=== PATIENT | female | born 1975 | race Caucasian/White ===

== ENCOUNTER 2017-09-20 20:36 | Emergency (ER) | payer OTHER ==
[2017-09-20] MEDS ORDERED: DUONEB *Not for PRN Use IH ONE (21:41)
[2017-09-21] MEDS ORDERED: DUONEB *Not for PRN Use IH ONE (00:20)
[2017-09-21] MEDS ORDERED: DELTASONE PO ONE (00:21)
[2017-09-21] MEDS: DUONEB *Not for PRN Use IH ONE ×5 (00:43→05:10)
--- NOTE | 2017-09-21 01:15 | XRay Report ---
FINAL REPORT PROCEDURE: XR CHEST ROUTINE 2V TECHNIQUE: PA and lateral chest radiographs were obtained. CPT 12570 HISTORY: asthma lyndon COMPARISON: No prior studies are available for comparison. FINDINGS: Heart: Normal. Mediastinum/Vessels: Normal. Lungs/Pleural space: Normal. Bony thorax: No acute osseous abnormality. Other: IMPRESSION: There is no evidence of an acute cardiopulmonary process.
[2017-09-21 04:50] LABS: Hematocrit 37.6 % (30.3-42.9); Hemoglobin 12.3 gm/dl (10.1-14.3); Mean Corpuscular HGB Conc 33 % (30-34); Mean Corpuscular Hemoglobin 24 pg (28-32); Mean Corpuscular Volume 74 fl (79-97); Platelet Count 185 K/mm3 (140-440); Red Blood Count 5.06 M/mm3 (3.65-5.03)
[2017-09-21 05:04] LABS: BUN/Creatinine Ratio 14; Blood Urea Nitrogen 10 mg/dL (7-17); Calcium 8.6 mg/dL (8.4-10.2); Hemolysis Index 6
[2017-09-21 05:30] LABS: Basophils % (Manual) 0 % (0.0-1.8); Eosinophils % (Manual) 0 % (0.0-4.3); Hypochromasia 1+; Total Cells Counted 100
[2017-09-21 05:31] LABS: Anisocytosis 1+; Platelet Estimate Consistent w Auto
--- NOTE | 2017-09-21 06:08 | Emergency Department Report ---
ED General Adult HPI - General Chief complaint: Adult Asthma Stated complaint: ASTHMA,EYES,LIPS REDDISH, HEADACHE Time Seen by Provider: 09/21/17 03:50 Source: patient Mode of arrival: Ambulatory Limitations: No Limitations - History of Present Illness Initial comments: 42-year-old female poor historian and speaks some Hungarian says she does have hx of issue of asthma denies other complaints says she took some of her mother's asthma medicine and it made her lips breakout and made her heart race .she denies chest pain she denies calf pain or swelling she denies any history of DVT or PE. Denies risk factors for DVT PE denies any family history for DVT PE. She denies and refuses a test .she is here for evaluation of palpitations after using her mother's asthma medicine and the asthma medicine broke her lips out, asthma sx are beter now, no cp no fever no cough. -: Gradual, unknown Radiation: non-radiation Severity scale (0 -10): 3 Associated Symptoms: denies other symptoms, rash. denies: confusion, chest pain , cough, diaphoresis, fever/chills, headaches, loss of appetite, malaise, nausea /vomiting, seizure, shortness of breath, syncope, weakness - Related Data Previous Rx's Medication Instructions Recorded Last Taken Type traMADol [Ultram 50 MG tab] 50 mg PO Q6HR PRN #20 tablet 05/23/13 Unknown Rx ALBUTEROL Inhaler [ProAir HFA 2 puff IH QID PRN #1 inhalation 09/21/17 Unknown Rx Inhaler] Prednisone 50 mg PO DAILY #5 tablet 09/21/17 Unknown Rx Allergies Allergy/AdvReac Type Severity Reaction Status Date / Time aspirin Allergy Shortness Verified 05/22/13 20:32 of Breath ED Review of Systems ROS: Stated complaint: ASTHMA,EYES,LIPS REDDISH, HEADACHE Other details as noted in HPI Comment: All other systems reviewed and negative Constitutional: denies: chills, diaphoresis, fever, malaise, weakness Eyes: denies: eye discharge, vision change ENT: denies: ear pain, throat pain, dental pain, hearing loss, epistaxis, congestion Respiratory: wheezing. denies: cough, orthopnea, shortness of breath, SOB with exertion, SOB at rest, stridor Cardiovascular: denies: chest pain, palpitations, dyspnea on exertion, orthopnea , edema, syncope, paroxysmal nocturnal dyspnea Gastrointestinal: denies: abdominal pain, nausea, vomiting, diarrhea, constipation, hematemesis, melena, hematochezia Genitourinary: denies: urgency, dysuria, hematuria, discharge, abnormal menses Neurological: denies: headache, weakness, numbness, paresthesias, confusion, abnormal gait Psychiatric: denies: visual hallucinations, homicidal thoughts, suicidal thoughts Hematological/Lymphatic: denies: easy bleeding, easy bruising, swollen glands ED Past Medical Hx - Past Medical History Previous Medical History?: Yes Hx Asthma: Yes - Surgical History Past Surgical History?: No - Social History Smoking Status: Never Smoker Substance Use Type: None - Medications Home Medications: Home Medications Medication Instructions Recorded Confirmed Last Taken Type traMADol [Ultram 50 MG tab] 50 mg PO Q6HR PRN #20 tablet 05/23/13 Unknown Rx ALBUTEROL Inhaler [ProAir HFA 2 puff IH QID PRN #1 inhalation 09/21/17 Unknown Rx Inhaler] Prednisone 50 mg PO DAILY #5 tablet 09/21/17 Unknown Rx ED Physical Exam - General Limitations: No Limitations General appearance: alert, in no apparent distress, anxious - Head Head exam: Present: atraumatic, normocephalic - Eye Eye exam: Present: normal appearance, PERRL, EOMI - ENT ENT exam: Present: normal exam, normal orophraynx - Neck Neck exam: Present: normal inspection. Absent: tenderness, meningismus - Respiratory Respiratory exam: Present: normal lung sounds bilaterally. Absent: respiratory distress, wheezes, rales, rhonchi, stridor, chest wall tenderness, accessory muscle use, decreased breath sounds, prolonged expiratory - Cardiovascular Cardiovascular Exam: Present: regular rate, normal rhythm, normal heart sounds - GI/Abdominal GI/Abdominal exam: Present: soft. Absent: distended, tenderness, guarding, rebound, organomegaly, mass, pulsatile mass - Extremities Exam Extremities exam: Present: normal inspection, normal capillary refill. Absent: full ROM, tenderness, pedal edema, joint swelling, calf tenderness - Back Exam Back exam: Present: normal inspection. Absent: CVA tenderness (R), CVA tenderness (L), muscle spasm, paraspinal tenderness, vertebral tenderness - Neurological Exam Neurological exam: Present: alert, oriented X3, CN II-XII intact. Absent: motor sensory deficit - Psychiatric Psychiatric exam: Present: normal affect. Absent: suicidal ideation - Skin Skin exam: Present: warm. Absent: diaphoretic, erythema, urticaria, vesicles, petechiae, pallor ED Course Vital Signs 09/20/17 09/21/17 09/21/17 21:34 00:43 00:51 Temperature 98.8 F Pulse Rate 104 H Pulse Rate [ 82 Right Lower Lobe] Respiratory 22 Rate Respiratory 18 Rate [Right Lower Lobe] Blood Pressure 119/81 Blood Pressure [Right] O2 Sat by Pulse 96 99 Oximetry 09/21/17 09/21/17 09/21/17 01:00 01:04 01:06 Temperature 100.4 F H Pulse Rate 106 H Pulse Rate [ 84 Right Lower Lobe] Respiratory 18 18 Rate Respiratory 18 Rate [Right Lower Lobe] Blood Pressure Blood Pressure 139/75 [Right] O2 Sat by Pulse 99 98 98 Oximetry 09/21/17 09/21/17 09/21/17 01:16 01:30 01:46 Temperature Pulse Rate Pulse Rate [ Right Lower Lobe] Respiratory Rate Respiratory Rate [Right Lower Lobe] Blood Pressure Blood Pressure [Right] O2 Sat by Pulse 99 99 98 Oximetry 09/21/17 09/21/17 09/21/17 02:00 02:15 02:20 Temperature 99.1 F Pulse Rate 103 H Pulse Rate [ Right Lower Lobe] Respiratory 16 Rate Respiratory Rate [Right Lower Lobe] Blood Pressure 115/66 Blood Pressure 114/66 [Right] O2 Sat by Pulse 99 96 97 Oximetry 09/21/17 09/21/17 09/21/17 02:30 02:45 03:00 Temperature Pulse Rate Pulse Rate [ Right Lower Lobe] Respiratory Rate Respiratory Rate [Right Lower Lobe] Blood Pressure 121/70 127/77 126/74 Blood Pressure [Right] O2 Sat by Pulse 98 91 92 Oximetry 09/21/17 09/21/17 09/21/17 03:15 03:30 03:46 Temperature Pulse Rate Pulse Rate [ Right Lower Lobe] Respiratory Rate Respiratory Rate [Right Lower Lobe] Blood Pressure 130/71 115/68 101/63 Blood Pressure [Right] O2 Sat by Pulse 93 95 96 Oximetry 09/21/17 09/21/17 09/21/17 04:00 04:15 04:30 Temperature Pulse Rate 89 86 89 Pulse Rate [ Right Lower Lobe] Respiratory 21 16 19 Rate Respiratory Rate [Right Lower Lobe] Blood Pressure 116/59 106/56 115/68 Blood Pressure [Right] O2 Sat by Pulse 93 96 100 Oximetry 09/21/17 09/21/17 09/21/17 04:40 04:58 05:02 Temperature Pulse Rate Pulse Rate [ 84 86 84 Right Lower Lobe] Respiratory Rate Respiratory 18 16 18 Rate [Right Lower Lobe] Blood Pressure Blood Pressure [Right] O2 Sat by Pulse Oximetry ED Medical Decision Making - Lab Data Result diagrams: 09/21/17 04:38 09/21/17 04:38 - EKG Data -: EKG Interpreted by Me EKG shows normal: sinus rhythm Rate: normal - EKG Data Interpretation: no acute changes, nonspecific ST-T wave hernando - Radiology Data Radiology results: report reviewed - Medical Decision Making Patient has symptoms that likely represent medication side effect. She did get a bit of a pounding heart after trying her mother's asthma medicines. She does have negative troponin 2 within normally nondiagnostic EKG. Chest x-ray was read as no acute process. She denies risk factors and is perk negative for DVT PE. She is improved in the ED with stable vital signs were heart rate blood pressure pulse are satisfactory is rate are all normal go ahead and put her back on her regular albuterol at her prednisone. Chest x-ray and ekg is unremarkable; no evidence of an acute emergent process that will require further workup or admission are noted at this time she is therefore stablel for outpatient follow-up Critical care attestation.: If time is entered above; I have spent that time in minutes in the direct care of this critically ill patient, excluding procedure time. ED Disposition Clinical Impression: Asthma, Medication side effect Disposition: DC-01 TO HOME OR SELFCARE Is pt being admited?: No Condition: Stable Instructions: Asthma (ED), Reactive Airways Disease (ED) Additional Instructions: See her doctor or the doctor listed in 2 days, return immediately if new or alarming symptoms or call 911 Prescriptions: ALBUTEROL Inhaler [ProAir HFA Inhaler] 2 puff IH QID PRN #1 inhalation PRN Reason: Shortness Of Breath Prednisone 50 mg PO DAILY #5 tablet Referrals: ELYSSA NAZARIO MD [Primary Care Provider] - 3-5 Days Time of Disposition: 06:13
[2017-09-21 06:47] VITALS: BP 126/75
== END 2017-09-21 06:46 | disposition home or self-care (01) ==
LOC: ED 20:36
DX: J45.909 Unspecified asthma, uncomplicated (principal); T50.995A Adverse effect of other drugs, medicaments and biological substances, initial encounter; Z88.6 Allergy status to analgesic agent; Y92.89 Other specified places as the place of occurrence of the external cause
CPT/HCPCS: 36415; 71046; 80048; 84484; 85007; 85025; 93005; 93010; 94640; 99284; J7512

== ENCOUNTER 2021-01-05 23:51 | Observation (INO) | payer OTHER, SELFPAY ==
[2021-01-06] MEDS ORDERED: AZITHROMYCIN/NS 500 MG/250 ML 500 MG/250 ML BAG IV ONE (00:25)
[2021-01-06] MEDS ORDERED: cefTRIAXone/NS 2 GM/100 ML 2 GM/100 ML BAG IV ONE (00:25)
[2021-01-06 00:46] LABS: Basophils % (Auto) 0.5 % (0.0-1.8); Eosinophils # (Auto) 0.3 K/mm3 (0.0-0.4); Eosinophils % (Auto) 3.4 % (0.0-4.3); Hematocrit 35.6 % (30.3-42.9); Hemoglobin 11.4 gm/dl (10.1-14.3); Lymphocytes # (Auto) 0.8 K/mm3 (1.2-5.4); Lymphocytes % (Auto) 8.8 % (13.4-35.0); Mean Corpuscular HGB Conc 32 % (30-34); Mean Corpuscular Volume 75 fl (79-97); Monocytes # (Auto) 0.6 K/mm3 (0.0-0.8); Monocytes % (Auto) 7.2 % (0.0-7.3); Platelet Count 254 K/mm3 (140-440); Red Blood Count 4.74 M/mm3 (3.65-5.03); Red Cell Distribution Width 16.1 % (13.2-15.2)
[2021-01-06] MEDS ORDERED: ALBUTEROL 2.5 MG/3 ML NEBU IH ONE (00:58)
[2021-01-06] MEDS ORDERED: MORPHINE 4 MG/1 ML INJ IV ONE (00:58)
[2021-01-06] MEDS ORDERED: ONDANSETRON 4 MG/2 ML INJ IV ONE (00:58)
[2021-01-06] MEDS ORDERED: dexAMETHasone 20 MG/5 ML VIAL IV ONE (00:58)
[2021-01-06] MEDS ORDERED: IPRATROPIUM 0.02% NEBU 2.5 ML IH ONE (00:58)
[2021-01-06 01:04] LABS: Alanine Aminotransferase 13 units/L (7-56); Albumin 4.2 g/dL (3.9-5); Blood Urea Nitrogen 10 mg/dL (7-17); Calcium 8.6 mg/dL (8.4-10.2); Hemolysis Index 2
[2021-01-06 01:06] LABS: BUN/Creatinine Ratio 14
--- NOTE | 2021-01-06 01:10 | Emergency Department Report ---
ED Shortness of Breath HPI - General Chief Complaint: Chest Pain Stated Complaint: HYACINTH Time Seen by Provider: 01/06/21 00:30 Source: patient Mode of arrival: Ambulatory Limitations: Language Barrier - History of Present Illness Initial Comments: Patient is a 45-year-old female who is presenting with chest pain shortness of breath. Patient has a history of asthma. Patient has had some increased shortness of breath and cough for the past 2 to 3 days. Pain cough and shortness of breath worsened over the last day. She has had some chills. Denies any objective fever at home however she was febrile on arrival. Has been some mild nausea especially with fits of coughing. Denies headache sore throat diarrhea. Patient has had 2 COVID-19 vaccines greater than 2 weeks ago. - Related Data Previous Rx's Medication Instructions Recorded Last Taken Type traMADoL [Ultram 50 MG tab] 50 mg PO Q6HR PRN #20 tablet 05/23/13 Unknown Rx Albuterol Mdi (or & Nicu Only) 2 puff IH QID PRN #1 inhalation 09/21/17 Unknown Rx [ProAir HFA Inhaler] predniSONE [Prednisone] 50 mg PO DAILY #5 tablet 09/21/17 Unknown Rx Allergies Allergy/AdvReac Type Severity Reaction Status Date / Time aspirin Allergy Shortness Verified 05/22/13 20:32 of Breath ED Review of Systems ROS: Stated complaint: HYACINTH Other details as noted in HPI Comment: All other systems reviewed and negative ED Past Medical Hx - Past Medical History Previous Medical History?: Yes Hx Asthma: Yes - Surgical History Past Surgical History?: Yes Additional Surgical History: L armpit - Social History Smoking Status: Never Smoker Substance Use Type: None - Medications Home Medications: Home Medications Medication Instructions Recorded Confirmed Last Taken Type traMADoL [Ultram 50 MG tab] 50 mg PO Q6HR PRN #20 tablet 05/23/13 Unknown Rx Albuterol Mdi (or & Nicu Only) 2 puff IH QID PRN #1 inhalation 09/21/17 Unknown Rx [ProAir HFA Inhaler] predniSONE [Prednisone] 50 mg PO DAILY #5 tablet 09/21/17 Unknown Rx ED Physical Exam - General Limitations: Language Barrier General appearance: alert, in distress, other (ill but none toxic appearing) - Head Head exam: Present: atraumatic, normocephalic - Eye Eye exam: Present: normal appearance, PERRL, EOMI - ENT ENT exam: Present: mucous membranes moist - Neck Neck exam: Present: normal inspection - Respiratory Respiratory exam: Present: respiratory distress, wheezes. Absent: normal lung sounds bilaterally, rales, rhonchi - Cardiovascular Cardiovascular Exam: Present: normal rhythm, tachycardia. Absent: systolic murmur, diastolic murmur, rubs, gallop - GI/Abdominal GI/Abdominal exam: Present: soft, normal bowel sounds. Absent: distended, tenderness, guarding, rebound - Extremities Exam Extremities exam: Present: normal inspection - Back Exam Back exam: Present: normal inspection - Neurological Exam Neurological exam: Present: alert, oriented X3 - Psychiatric Psychiatric exam: Present: normal affect, normal mood - Skin Skin exam: Present: warm, dry, intact, normal color. Absent: rash ED Course Vital Signs 01/05/21 01/06/21 01/06/21 23:54 01:09 01:51 Temperature 100.2 F H Pulse Rate 112 H Pulse Rate [ 110 H Bilateral] Respiratory 18 28 H Rate Respiratory 20 Rate [Bilateral ] Blood Pressure 158/88 O2 Sat by Pulse 92 Oximetry 01/06/21 01/06/21 01/06/21 01:52 01:53 01:55 Temperature Pulse Rate 111 H 112 H 108 H Pulse Rate [ Bilateral] Respiratory 29 H 26 H 26 H Rate Respiratory Rate [Bilateral ] Blood Pressure 147/80 147/80 149/77 O2 Sat by Pulse 93 94 Oximetry 01/06/21 01/06/21 01:56 01:57 Temperature Pulse Rate 111 H 112 H Pulse Rate [ Bilateral] Respiratory 28 H 28 H Rate Respiratory Rate [Bilateral ] Blood Pressure 149/77 149/77 O2 Sat by Pulse 96 93 Oximetry ED Medical Decision Making - Lab Data Result diagrams: 01/06/21 00:17 01/06/21 00:17 Lab Results 01/06/21 01/06/21 01/06/21 Range/Units 00:17 00:17 00:48 WBC 9.0 (4.5-11.0) K/mm3 RBC 4.74 (3.65-5.03) M/mm3 Hgb 11.4 (10.1-14.3) gm/dl Hct 35.6 (30.3-42.9) % MCV 75 L (79-97) fl MCH 24 L (28-32) pg MCHC 32 (30-34) % RDW 16.1 H (13.2-15.2) % Plt Count 254 (140-440) K/mm3 Lymph % (Auto) 8.8 L (13.4-35.0) % [place] % (Auto) 7.2 (0.0-7.3) % Eos % (Auto) 3.4 (0.0-4.3) % Baso % (Auto) 0.5 (0.0-1.8) % Lymph # (Auto) 0.8 L (1.2-5.4) K/mm3 [place] # (Auto) 0.6 (0.0-0.8) K/mm3 Eos # (Auto) 0.3 (0.0-0.4) K/mm3 Baso # (Auto) 0.0 (0.0-0.1) K/mm3 Seg Neutrophils % 80.1 H (40.0-70.0) % Seg Neutrophils # 7.2 (1.8-7.7) K/mm3 Sodium 134 L (137-145) mmol/L Potassium 4.2 (3.6-5.0) mmol/L Chloride 102.1 (98-107) mmol/L Carbon Dioxide 20 L (22-30) mmol/L Anion Gap 16 mmol/L BUN 10 (7-17) mg/dL Creatinine 0.7 (0.6-1.2) mg/dL Estimated GFR > 60 ml/min BUN/Creatinine Ratio 14 % Glucose 131 H (65-100) mg/dL Lactic Acid 0.90 (0.7-2.0) mmol/L Calcium 8.6 (8.4-10.2) mg/dL Total Bilirubin 0.80 (0.1-1.2) mg/dL AST 11 (5-40) units/L ALT 13 (7-56) units/L Alkaline Phosphatase 84 (35-129) units/L Troponin T < 0.010 (0.00-0.029) ng/mL Total Protein 7.2 (6.3-8.2) g/dL Albumin 4.2 (3.9-5) g/dL Albumin/Globulin Ratio 1.4 % - Radiology Data Radiology results: report reviewed, image reviewed (Per my interpretation there is a slight haziness in the right middle lobe. Patient has chronic elevation of the right diaphragm. In comparison to past x-rays patient is is worse than previous) [facility] [address] [place] [address] XRay Report Signed Patient: MELYSSA EDGE MR# : [id number] : 1975 Acct:[id number] Age/Sex: 45 / F ADM Date: 01/05/21 Loc: ED Attending Dr: Ordering Physician: KRISTIN VASQUEZ MD Date of Service: 01/05/21 Procedure(s): XR chest routine 2V Accession Number(s): [id number] cc: KRISTIN VASQUEZ MD Fluoro Time In Minutes: CHEST 2 VIEWS INDICATION / CLINICAL INFORMATION: dry cough. FINDINGS: SUPPORT DEVICES: None. HEART / MEDIASTINUM: No significant abnormality. LUNGS / PLEURA: No significant pulmonary or pleural abnormality. No pneumothorax. ADDITIONAL FINDINGS: No significant additional findings. IMPRESSION: 1. No acute findings. Signer Name: Polo Aguilar MD Signed: 01/06/2021 12:27 AM Workstation Name: [id number] Transcribed By: Dictated By: Polo Aguilar MD Electronically Authenticated By: Polo Aguilar MD Signed Date/Time: 01/06/21 0027 - Medical Decision Making After hour-long neb treatment the patient is continued to wheeze and have shortness of breath. O2 sats in the low 90s at rest. Patient will be admitted to the hospitalist service for further management. Critical Care Time: Yes (30) Critical care attestation.: If time is entered above; I have spent that time in minutes in the direct care of this critically ill patient, excluding procedure time. ED Disposition Clinical Impression: Hypoxia, Suspected COVID-19 virus infection Asthma exacerbation Qualifiers: Asthma severity: moderate Asthma persistence: persistent Qualified Code(s): J45.41 - Moderate persistent asthma with (acute) exacerbation Pneumonia Qualifiers: Pneumonia type: due to unspecified organism Laterality: right Lung location: middle lobe of lung Qualified Code(s): J18.9 - Pneumonia, unspecified organism Disposition: OP ADMIT IP TO THIS HOSP Is pt being admited?: Yes Does the pt Need Aspirin: No Condition: Stable Instructions: Bacterial Pneumonia (ED) Referrals: PRIMARY CARE, [Primary Care Provider] - 3-5 Days Time of Disposition: 02:45
[2021-01-06] MEDS ORDERED: MAGNESIUM SULFATE 2 GM/50 ML BAG IV ONE (02:29)
[2021-01-06 03:06] LABS: C-Reactive Protein 1.9 mg/dL (0.00-1.30)
[2021-01-06] MEDS ORDERED: ACETAMINOPHEN 325 MG TAB PO PRN (05:07)
[2021-01-06] MEDS ORDERED: ALBUTEROL 2.5 MG/3 ML NEBU IH PRN (05:07)
[2021-01-06] MEDS ORDERED: ONDANSETRON 4 MG/2 ML INJ IV PRN (05:07)
[2021-01-06] MEDS ORDERED: ALBUTEROL 8.5 GM MDI INHALATION IH PRN (05:10)
[2021-01-06] MEDS ORDERED: traMADol 50 MG TAB PO PRN (05:10)
[2021-01-06] MEDS ORDERED: SODIUM CHLORIDE 0.9% IV ONE (05:11)
[2021-01-06] MEDS ORDERED: hydrALAZINE 20 MG/1 ML INJ IV PRN (05:11)
[2021-01-06] MEDS ORDERED: DEXAMETHASONE IV ONE (05:11)
--- NOTE | 2021-01-06 05:18 | History and Physical Report ---
History of Present Illness Date of examination: 01/06/21 Date of admission: 01/06/21 02:45 Chief complaint: Chest pain shortness of breath History of present illness: 45-year-old female with past medical history of asthma was brought to the emergency room because of chest pain and increased shortness of breath and coughing for the last 2 days. patient has had some increased shortness of breath and cough for the past 2 to 3 days. Pain cough and shortness of breath worsened over the last day. She has had some chills. Denies any objective fever at home however she was febrile on arrival. Has been some mild nausea especially with fits of coughing. Denies headache sore throat diarrhea. Patient has had 2 COVID-19 vaccines greater than 2 weeks ago. In the emergency room patient is found to have acute asthma exacerbation checks x-ray compatible with pneumonia as per the ER physician Past History Past Medical History: other (Asthma) Medications and Allergies Allergies Allergy/AdvReac Type Severity Reaction Status Date / Time aspirin Allergy Shortness Verified 05/22/13 20:32 of Breath Home Medications Medication Instructions Recorded Confirmed Last Taken Type traMADoL [Ultram 50 MG tab] 50 mg PO Q6HR PRN #20 tablet 05/23/13 Unknown Rx Albuterol Mdi (or & Nicu Only) 2 puff IH QID PRN #1 inhalation 09/21/17 Unknown Rx [ProAir HFA Inhaler] predniSONE [Prednisone] 50 mg PO DAILY #5 tablet 09/21/17 Unknown Rx Review of Systems Cardiovascular: shortness of breath, dyspnea on exertion Respiratory: cough, shortness of breath, dyspnea on exertion Exam - Constitutional Vitals: Temp Pulse Resp BP Pulse Ox 100.2 F H 112 H 25 H 126/68 94 01/05/21 23:54 01/06/21 04:31 01/06/21 04:31 01/06/21 04:31 01/06/21 04:31 General appearance: Present: no acute distress, well-nourished - EENT Eyes: Present: PERRL ENT: hearing intact, clear oral mucosa - Neck Neck: Present: supple, normal ROM - Respiratory Respiratory effort: normal Respiratory: bilateral: wheezing - Cardiovascular Heart Sounds: Present: S1 & S2. Absent: rub, click - Extremities Extremities: pulses symmetrical, No edema Peripheral Pulses: within normal limits - Abdominal General gastrointestinal: Present: soft, non-tender, non-distended, normal bowel sounds Female genitourinary: Present: normal - Integumentary Integumentary: Present: clear, warm, dry - Musculoskeletal Musculoskeletal: gait normal, strength equal bilaterally - Psychiatric Psychiatric: appropriate mood/affect, intact judgment & insight - Neurologic Neurologic: CNII-XII intact, moves all extremities HEART Score - HEART Score Troponin: Troponin T < 0.010 ng/mL (0.00-0.029) 01/06/21 00:17 Results - Labs CBC & Chem 7: 01/06/21 00:17 01/06/21 02:38 Labs: Laboratory Last Values WBC 9.0 K/mm3 (4.5-11.0) 01/06/21 00:17 RBC 4.74 M/mm3 (3.65-5.03) 01/06/21 00:17 Hgb 11.4 gm/dl (10.1-14.3) 01/06/21 00:17 Hct 35.6 % (30.3-42.9) 01/06/21 00:17 MCV 75 fl (79-97) L 01/06/21 00:17 MCH 24 pg (28-32) L 01/06/21 00:17 MCHC 32 % (30-34) 01/06/21 00:17 RDW 16.1 % (13.2-15.2) H 01/06/21 00:17 Plt Count 254 K/mm3 (140-440) 01/06/21 00:17 Lymph % (Auto) 8.8 % (13.4-35.0) L 01/06/21 00:17 [place] % (Auto) 7.2 % (0.0-7.3) 01/06/21 00:17 Eos % (Auto) 3.4 % (0.0-4.3) 01/06/21 00:17 Baso % (Auto) 0.5 % (0.0-1.8) 01/06/21 00:17 Lymph # (Auto) 0.8 K/mm3 (1.2-5.4) L 01/06/21 00:17 [place] # (Auto) 0.6 K/mm3 (0.0-0.8) 01/06/21 00:17 Eos # (Auto) 0.3 K/mm3 (0.0-0.4) 01/06/21 00:17 Baso # (Auto) 0.0 K/mm3 (0.0-0.1) 01/06/21 00:17 Seg Neutrophils % 80.1 % (40.0-70.0) H 01/06/21 00:17 Seg Neutrophils # 7.2 K/mm3 (1.8-7.7) 01/06/21 00:17 D-Dimer 262.48 ng/mlDDU (0-234) H 01/06/21 02:38 Sodium 134 mmol/L (137-145) L 01/06/21 00:17 Potassium 4.2 mmol/L (3.6-5.0) 01/06/21 00:17 Chloride 102.1 mmol/L (98-107) 01/06/21 00:17 Carbon Dioxide 20 mmol/L (22-30) L 01/06/21 00:17 Anion Gap 16 mmol/L 01/06/21 00:17 BUN 10 mg/dL (7-17) 01/06/21 00:17 Creatinine 0.7 mg/dL (0.6-1.2) 01/06/21 00:17 Estimated GFR > 60 ml/min 01/06/21 00:17 BUN/Creatinine Ratio 14 % 01/06/21 00:17 Glucose 117 mg/dL (65-100) H 01/06/21 02:38 Lactic Acid 2.40 mmol/L (0.7-2.0) H* 01/06/21 04:11 Calcium 8.6 mg/dL (8.4-10.2) 01/06/21 00:17 Ferritin 22.7 ng/mL (10.0-200.0) 01/06/21 02:38 Total Bilirubin 0.80 mg/dL (0.1-1.2) 01/06/21 00:17 AST 11 units/L (5-40) 01/06/21 00:17 ALT 13 units/L (7-56) 01/06/21 00:17 Alkaline Phosphatase 84 units/L (35-129) 01/06/21 00:17 Lactate Dehydrogenase 197 units/L (91-180) H 01/06/21 02:38 Troponin T < 0.010 ng/mL (0.00-0.029) 01/06/21 00:17 C-Reactive Protein 1.90 mg/dL (0.00-1.30) H 01/06/21 02:38 Total Protein 7.2 g/dL (6.3-8.2) 01/06/21 00:17 Albumin 4.2 g/dL (3.9-5) 01/06/21 00:17 Albumin/Globulin Ratio 1.4 % 01/06/21 00:17 Microbiology: Microbiology 01/06/21 00:48 Peripheral/Venous Blood Culture - Preliminary Culture in Progress 01/06/21 00:42 Peripheral/Venous Blood Culture - Preliminary Culture in Progress - Imaging and Cardiology Chest x-ray: report reviewed Assessment and Plan VTE prophylaxis?: Chemical Plan of care discussed with patient/family: Yes - Patient Problems (1) Asthma exacerbation Current Visit: Yes Status: Acute Qualifiers: Asthma severity: moderate Asthma persistence: persistent Qualified Code(s): J45.41 - Moderate persistent asthma with (acute) exacerbation Plan to address problem: Admit the patient to the medical floor telemetry. Oxygen via nasal cannula 3 L/min. DuoNeb by nebulizer every 4 hours. Albuterol via nebulizer every 4 hours as needed. Decadron 6 mg IV daily. Rocephin 2 g IV daily and Zithromax 500 mg IV daily. (2) Hypoxia Current Visit: Yes Status: Acute Plan to address problem: Oxygen via nasal cannula 3 L/min. DuoNeb by nebulizer every 4 hours. Albuterol via nebulizer every 4 hours as needed. Decadron 6 mg IV daily. Rocephin 2 g IV daily and Zithromax 500 mg IV daily. (3) Pneumonia Current Visit: Yes Status: Acute Qualifiers: Pneumonia type: due to unspecified organism Laterality: right Lung location: middle lobe of lung Qualified Code(s): J18.9 - Pneumonia, unspecified organism Plan to address problem: Oxygen via nasal cannula 3 L/min. DuoNeb by nebulizer every 4 hours. Albuterol via nebulizer every 4 hours as needed. Decadron 6 mg IV daily. Rocephin 2 g IV daily and Zithromax 500 mg IV daily. We will do the blood culture and sputum culture (4) Suspected COVID-19 virus infection Current Visit: Yes Status: Acute Plan to address problem: Decadron 6 mg IV daily. Rocephin 2 g IV daily and Zithromax 500 mg IV daily. Consult infectious disease for evaluation follow the Covid PCR and Covid inflammatory marker. Recheck CBC in the morning (5) DVT prophylaxis Current Visit: Yes Status: Acute Plan to address problem: Heparin 5000 units subcu every 8 hours for DVT prophylaxis. Protonix 40 mg p.o. daily for GI prophylaxis. Patient is a full code
[2021-01-06] MEDS ORDERED: SODIUM CHLORIDE 0.45% 1000 ML 1,000 ML IV SCH (06:00)
[2021-01-06] MEDS: IPRATROPIUM/ALBUTEROL SULFATE 3 ML AMPUL.NEB IH SCH ×2 (07:36→14:02)
[2021-01-06] MEDS ORDERED: BUDESONIDE 0.5 MG/2 ML NEBU IH SCH (08:00)
[2021-01-06] MEDS ORDERED: FAMOTIDINE 20 MG TAB PO SCH (10:00)
--- NOTE | 2021-01-06 11:32 | Consultation ---
History of Present Illness - Reason for Consult Consult date: 01/06/21 LISA SMITH Requesting physician: GURPREET GANDARA - History of Present Illness The patient is a 45-year-old female with history of asthma admitted to the hospital with chest pain and shortness of breath in addition to cough. Upon evaluation, had a low-grade fever, bilateral wheezing on examination. She has been on room air, chest x-ray did not reveal any infiltrates. Labs showed kanwal l WBC, D-dimer 262, CRP 1.9, procalcitonin 0.05, ferritin 22.7 Review of Systems: Negative, except per HPI Past History Past Medical History: other (Asthma) Medications and Allergies Allergies Allergy/AdvReac Type Severity Reaction Status Date / Time aspirin Allergy Shortness Verified 05/22/13 20:32 of Breath Home Medications Medication Instructions Recorded Confirmed Last Taken Type traMADoL [Ultram 50 MG tab] 50 mg PO Q6HR PRN #20 tablet 05/23/13 Unknown Rx Albuterol Mdi (or & Nicu Only) 2 puff IH QID PRN #1 inhalation 09/21/17 Unknown Rx [ProAir HFA Inhaler] predniSONE [Prednisone] 50 mg PO DAILY #5 tablet 09/21/17 Unknown Rx Active Meds: Active Medications Acetaminophen (Acetaminophen 325 Mg Tab) 650 mg PO Q4H PRN PRN Reason: Pain MILD(1-3)/Fever >100.5/MOE Albuterol (Albuterol 2.5 Mg/3 Ml Nebu) 2.5 mg IH Q4HRT PRN PRN Reason: Shortness Of Breath Albuterol/Ipratropium (Ipratropium/Albuterol Sulfate 3 Ml Ampul.Neb) 1 ampul IH Q6HRT [facility] Last Admin: 01/06/21 07:36 Dose: 1 ampul Documented by: Budesonide (Budesonide 0.5 Mg/2 Ml Nebu) 0.5 mg IH Q12HRT [facility] Last Admin: 01/06/21 07:36 Dose: 0.5 mg Documented by: Dexamethasone (Dexamethasone 4 Mg/Ml Vial) 6 mg IV DAILY [facility] Famotidine (Famotidine 20 Mg Tab) 20 mg PO BID [facility] Last Admin: 01/06/21 09:52 Dose: 20 mg Documented by: Heparin Sodium (Porcine) (Heparin 5,000 Unit/1 Ml Vial) 5,000 unit SUB-Q Q8HR JO-ANN Hydralazine HCl (Hydralazine 20 Mg/1 Ml Inj) 10 mg IV Q6H PRN PRN Reason: SBP >/=160; DBP >/=100 Sodium Chloride (Nacl 0.45% 1000 Ml) 1,000 mls @ 100 mls/hr IV DIRECT JO-ANN Last Admin: 01/06/21 09:53 Dose: 100 mls/hr Documented by: Ceftriaxone Sodium (Rocephin/Ns 2 Gm/100 Ml) 2 gm in 100 mls @ 200 mls/hr IV Q24H JO-ANN; Protocol Azithromycin (Zithromax/Ns) 500 mg in 250 mls @ 250 mls/hr IV Q24H JO-ANN; Protocol Ondansetron HCl (Ondansetron 4 Mg/2 Ml Inj) 4 mg IV Q8H PRN PRN Reason: Nausea And Vomiting Sodium Chloride (Sodium Chloride 0.9% 10 Ml Flush Syringe) 10 ml IV BID JO-ANN Last Admin: 01/06/21 09:52 Dose: 10 ml Documented by: Sodium Chloride (Sodium Chloride 0.9% 10 Ml Flush Syringe) 10 ml IV PRN PRN PRN Reason: LINE FLUSH Tramadol HCl (Tramadol 50 Mg Tab) 50 mg PO Q6HR PRN PRN Reason: Pain, Moderate (4-6) Physical Examination - Physical Exam Narrative exam: Physical Exam: Constitutional: Alert, cooperative. No acute distress Head, Ears, Nose: Normocephalic, atraumatic. External ears, nose normal Eyes: Conjunctivae/corneas clear. No icterus. No ptosis. Neck: Supple, no meningeal signs Cardiovascular: S1, S2 normal. Respiratory: Good air entry, clear to auscultation bilaterally GI: Soft, non-tender; bowel sounds normal. No peritoneal signs Musculoskeletal: No pedal edema, no cyanosis. Skin: No rash or abscess Hem/Lymphatic: No palpable cervical or supraclavicular nodes. No lymphangitis Psych: Mood ok. Affect normal Neurological: Awake, alert, oriented. No gross abnormality - Constitutional Vitals: Vital Signs Temp Pulse Resp BP Pulse Ox 98.2 F 105 H 24 135/60 95 01/06/21 05:39 01/06/21 10:51 01/06/21 07:51 01/06/21 10:51 01/06/21 10:51 Temperature -Last 24 Hours Temperature 98.2 F Temperature 100.2 F Results - Labs CBC & Chem 7: 01/06/21 00:17 01/06/21 02:38 Labs: Abnormal lab results 01/06/21 01/06/21 01/06/21 Range/Units 00:17 00:17 02:38 MCV 75 L (79-97) fl MCH 24 L (28-32) pg RDW 16.1 H (13.2-15.2) % Lymph % (Auto) 8.8 L (13.4-35.0) % Lymph # (Auto) 0.8 L (1.2-5.4) K/mm3 Seg Neutrophils % 80.1 H (40.0-70.0) % D-Dimer 262.48 H (0-234) ng/mlDDU Sodium 134 L (137-145) mmol/L Carbon Dioxide 20 L (22-30) mmol/L Glucose 131 H (65-100) mg/dL Lactic Acid (0.7-2.0) mmol/L Lactate Dehydrogenase (91-180) units/L C-Reactive Protein (0.00-1.30) mg/dL 01/06/21 01/06/21 Range/Units 02:38 04:11 MCV (79-97) fl MCH (28-32) pg RDW (13.2-15.2) % Lymph % (Auto) (13.4-35.0) % Lymph # (Auto) (1.2-5.4) K/mm3 Seg Neutrophils % (40.0-70.0) % D-Dimer (0-234) ng/mlDDU Sodium (137-145) mmol/L Carbon Dioxide (22-30) mmol/L Glucose 117 H (65-100) mg/dL Lactic Acid 2.40 H* (0.7-2.0) mmol/L Lactate Dehydrogenase 197 H (91-180) units/L C-Reactive Protein 1.90 H (0.00-1.30) mg/dL - Imaging and Cardiology Chest x-ray: report reviewed, image reviewed (no infiltrate seen) Assessment and Plan Cultures: SARS CoV2 PCR: Pending 01/06/2021 blood culture: In process A/P: 45-year-old female with history of asthma admitted to the hospital with chest pain and shortness of breath in addition to cough: #Acute asthma exacerbation: Chest x-ray without infiltrates. Recs: -Low suspicion for COVID-19, PCR is pending though, patient is status post vaccination (2nd shot was on December 19) and has low inflammatory markers, not hypoxic. -Procalcitonin is low, ceftriaxone discontinued. May complete 3 days of azithromycin Vero Graff MD, FACP [facility] ([facility] O: [phone] F: [phone]
[2021-01-06] MEDS: HEPARIN 5,000 UNIT/1 ML VIAL SUB-Q SCH ×2 (14:40→16:26)
--- NOTE | 2021-01-06 15:45 | Progress Note ---
Assessment and Plan Assessment and plan: (1) Asthma exacerbation Current Visit: Yes Status: Acute Qualifiers: Asthma severity: moderate Asthma persistence: persistent Qualified Code(s): J45.41 - Moderate persistent asthma with (acute) exacerbation Plan to address problem: Admit the patient to the medical floor telemetry. Oxygen via nasal cannula 3 L/min. DuoNeb by nebulizer every 4 hours. Albuterol via nebulizer every 4 hours as needed. Decadron 6 mg IV daily. Rocephin 2 g IV daily and Zithromax 500 mg IV daily. (2) Hypoxia Current Visit: Yes Status: Acute Plan to address problem: Oxygen via nasal cannula 3 L/min. DuoNeb by nebulizer every 4 hours. Albuterol via nebulizer every 4 hours as needed. Decadron 6 mg IV daily. Rocephin 2 g IV daily and Zithromax 500 mg IV daily. (3) Pneumonia Current Visit: Yes Status: Acute Qualifiers: Pneumonia type: due to unspecified organism Laterality: right Lung location: middle lobe of lung Qualified Code(s): J18.9 - Pneumonia, unspecified organism Plan to address problem: Oxygen via nasal cannula 3 L/min. DuoNeb by nebulizer every 4 hours. Albuterol via nebulizer every 4 hours as needed. Decadron 6 mg IV daily. Rocephin 2 g IV daily and Zithromax 500 mg IV daily. We will do the blood culture and sputum culture (4) Suspected COVID-19 virus infection Current Visit: Yes Status: Acute Plan to address problem: Decadron 6 mg IV daily. Rocephin 2 g IV daily and Zithromax 500 mg IV daily. Consult infectious disease for evaluation follow the Covid PCR and Covid inflammatory marker. Recheck CBC in the morning (5) DVT prophylaxis Current Visit: Yes Status: Acute Plan to address problem: Heparin 5000 units subcu every 8 hours for DVT prophylaxis. Protonix 40 mg p.o. daily for GI prophylaxis. Patient is a full code Hospitalist Physical - Constitutional Vitals: Temp Pulse Resp BP Pulse Ox 99.1 F 106 H 18 129/60 93 01/06/21 13:39 01/06/21 15:31 01/06/21 14:02 01/06/21 15:31 01/06/21 15:31 General appearance: Present: no acute distress, well-nourished HEART Score - HEART Score Troponin: Troponin T < 0.010 ng/mL (0.00-0.029) 01/06/21 00:17 Results - Labs CBC & Chem 7: 01/06/21 00:17 01/06/21 02:38 Labs: Laboratory Last Values WBC 9.0 K/mm3 (4.5-11.0) 01/06/21 00:17 RBC 4.74 M/mm3 (3.65-5.03) 01/06/21 00:17 Hgb 11.4 gm/dl (10.1-14.3) 01/06/21 00:17 Hct 35.6 % (30.3-42.9) 01/06/21 00:17 MCV 75 fl (79-97) L 01/06/21 00:17 MCH 24 pg (28-32) L 01/06/21 00:17 MCHC 32 % (30-34) 01/06/21 00:17 RDW 16.1 % (13.2-15.2) H 01/06/21 00:17 Plt Count 254 K/mm3 (140-440) 01/06/21 00:17 Lymph % (Auto) 8.8 % (13.4-35.0) L 01/06/21 00:17 [place] % (Auto) 7.2 % (0.0-7.3) 01/06/21 00:17 Eos % (Auto) 3.4 % (0.0-4.3) 01/06/21 00:17 Baso % (Auto) 0.5 % (0.0-1.8) 01/06/21 00:17 Lymph # (Auto) 0.8 K/mm3 (1.2-5.4) L 01/06/21 00:17 [place] # (Auto) 0.6 K/mm3 (0.0-0.8) 01/06/21 00:17 Eos # (Auto) 0.3 K/mm3 (0.0-0.4) 01/06/21 00:17 Baso # (Auto) 0.0 K/mm3 (0.0-0.1) 01/06/21 00:17 Seg Neutrophils % 80.1 % (40.0-70.0) H 01/06/21 00:17 Seg Neutrophils # 7.2 K/mm3 (1.8-7.7) 01/06/21 00:17 D-Dimer 262.48 ng/mlDDU (0-234) H 01/06/21 02:38 Sodium 134 mmol/L (137-145) L 01/06/21 00:17 Potassium 4.2 mmol/L (3.6-5.0) 01/06/21 00:17 Chloride 102.1 mmol/L (98-107) 01/06/21 00:17 Carbon Dioxide 20 mmol/L (22-30) L 01/06/21 00:17 Anion Gap 16 mmol/L 01/06/21 00:17 BUN 10 mg/dL (7-17) 01/06/21 00:17 Creatinine 0.7 mg/dL (0.6-1.2) 01/06/21 00:17 Estimated GFR > 60 ml/min 01/06/21 00:17 BUN/Creatinine Ratio 14 % 01/06/21 00:17 Glucose 117 mg/dL (65-100) H 01/06/21 02:38 Lactic Acid 3.00 mmol/L (0.7-2.0) H* 01/06/21 11:21 Calcium 8.6 mg/dL (8.4-10.2) 01/06/21 00:17 Ferritin 22.7 ng/mL (10.0-200.0) 01/06/21 02:38 Total Bilirubin 0.80 mg/dL (0.1-1.2) 01/06/21 00:17 AST 11 units/L (5-40) 01/06/21 00:17 ALT 13 units/L (7-56) 01/06/21 00:17 Alkaline Phosphatase 84 units/L (35-129) 01/06/21 00:17 Lactate Dehydrogenase 197 units/L (91-180) H 01/06/21 02:38 Troponin T < 0.010 ng/mL (0.00-0.029) 01/06/21 00:17 C-Reactive Protein 1.90 mg/dL (0.00-1.30) H 01/06/21 02:38 Total Protein 7.2 g/dL (6.3-8.2) 01/06/21 00:17 Albumin 4.2 g/dL (3.9-5) 01/06/21 00:17 Albumin/Globulin Ratio 1.4 % 01/06/21 00:17 Procalcitonin < 0.05 ng/mL (<0.15) 01/06/21 02:38 Coronavirus (PCR) Negative (Negative) 01/06/21 09:17 Microbiology: Microbiology 01/06/21 00:48 Peripheral/Venous Blood Culture - Preliminary Culture in Progress 01/06/21 00:42 Peripheral/Venous Blood Culture - Preliminary Culture in Progress [place]/IV: Voiding Method Toilet Active Medications - Current Medications Current Medications: Generic Name Dose Route Start Last Admin Trade Name Freq PRN Reason Stop Dose Admin Acetaminophen 650 mg 01/06/21 05:07 Acetaminophen 325 Mg Tab PO Q4H PRN Pain MILD(1-3)/Fever >100.5/MOE Albuterol 2.5 mg 01/06/21 05:07 Albuterol 2.5 Mg/3 Ml Nebu IH Q4HRT PRN Shortness Of Breath Albuterol/Ipratropium 1 ampul 01/06/21 08:00 01/06/21 14:02 Ipratropium/Albuterol Sulfate 3 Ml Ampul.Neb IH 1 ampul Q6HRT JO-ANN Administration Budesonide 0.5 mg 01/06/21 08:00 01/06/21 07:36 Budesonide 0.5 Mg/2 Ml Nebu IH 0.5 mg Q12HRT JO-ANN Administration Dexamethasone 6 mg 01/07/21 10:00 Dexamethasone 4 Mg/Ml Vial IV DAILY JO-ANN Famotidine 20 mg 01/06/21 10:00 01/06/21 09:52 Famotidine 20 Mg Tab PO 20 mg BID JO-ANN Administration Heparin Sodium (Porcine) 5,000 unit 01/06/21 06:00 Heparin 5,000 Unit/1 Ml Vial SUB-Q Q8HR JO-ANN Hydralazine HCl 10 mg 01/06/21 05:11 Hydralazine 20 Mg/1 Ml Inj IV Q6H PRN SBP >/=160; DBP >/=100 Sodium Chloride 1,000 mls @ 100 mls/hr 01/06/21 06:00 01/06/21 09:53 Nacl 0.45% 1000 Ml IV 100 mls/hr DIRECT JO-ANN Administration Azithromycin 500 mg in 250 mls @ 250 mls/hr 01/07/21 03:00 Zithromax/Ns IV 01/09/21 03:59 Q24H [facility] Protocol Ondansetron HCl 4 mg 01/06/21 05:07 Ondansetron 4 Mg/2 Ml Inj IV Q8H PRN Nausea And Vomiting Sodium Chloride 10 ml 01/06/21 10:00 01/06/21 09:52 Sodium Chloride 0.9% 10 Ml Flush Syringe IV 10 ml BID JO-ANN Administration Sodium Chloride 10 ml 01/06/21 05:07 Sodium Chloride 0.9% 10 Ml Flush Syringe IV PRN PRN LINE FLUSH Tramadol HCl 50 mg 01/06/21 05:10 Tramadol 50 Mg Tab PO Q6HR PRN Pain, Moderate (4-6)
--- NOTE | 2021-01-06 16:17 | Discharge Summary ---
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 Hospitalization Reason for admission: Worsening shortness of breath/acute asthma exacerbation Condition: Stable Pertinent studies: Chest x-ray; no acute abnormality Hospital course: 45-year-old female patient with significant past medical history of bronchial asthma was admitted through emergency room with chest pain and worsening shortness of breath as well as cough initial evaluation is consistent with febrile illness with low-grade fever as well acute exacerbation of bronchial asthma checks x-ray negative for infiltrates patient was admitted symptomatically managed and treated as PUI evaluated by ID medications optimized patient's irvin PCR test was negative patient was managed with oxygen titrating O2 sats to more than 90%, nebulizers, IV steroids and IV antibiotics Patient symptoms significantly but gradually improved today patient is comfortable no new complaints fever completely resolved asthma symptoms significantly improved and is being discharged on tapering dose of steroids as well as antibiotics along with inhalers patient is hemodynamically and clinically stable for discharge and follow-up with primary care physician as well as private pulmonary for further evaluation and management Patient was evaluated for home oxygen however patient's O2 sats resting room air and ambulatory room air are more than 95 to 96% no indication for home oxygen patient is hemodynamically and clinically stable at discharge Discharge diagnosis: --Acute asthma exacerbation Symptoms significantly improved Discharge on tapering dose of steroids, antibiotics, inhalers Advised to follow primary care physician and private stain dipper upon discharge --Hypoxia: Present on admission Resolved, not a candidate for home oxygen as O2 sats are more than 95 to 96% Continue steroids, antibiotics, inhalers and supportive care --Acute bronchitis/pneumonitis Oxygen via nasal cannula 3 L/min. Antibiotics, supportive care Cultures negative to date --Suspected COVID-19 virus infection Irvin PCR test is negative, continue tapering dose of steroids -- DVT prophylaxis Heparin 5000 units subcu every 8 hours during hospital stay Advised to ambulate as tolerated upon discharge Patient is stable at discharge Disposition: - TO HOME OR SELFCARE Final Discharge Diagnosis (Prints w/discharge instructions): Acute asthma exacerbation. Hypoxia requiring supplemental oxygen on admission. Acute bronchitis. PUI COVID-19. COVID-19 test is negative. Obesity Time spent for discharge: 35 min Core Measure Documentation - Palliative Care Palliative Care/ Comfort Measures: Not Applicable - Core Measures Any of the following diagnoses?: none Exam - Constitutional Vitals: Temp Pulse Resp BP Pulse Ox 99.1 F 106 H 18 129/60 93 01/06/21 13:39 01/06/21 15:31 01/06/21 14:02 01/06/21 15:31 01/06/21 15:31 General appearance: Present: no acute distress, well-nourished, obese - EENT Eyes: Present: PERRL, EOM intact - Neck Neck: Present: supple, normal ROM - Respiratory Respiratory effort: normal Respiratory: bilateral: diminished, negative: rales, rhonchi, wheezing - Cardiovascular Rhythm: regular Heart Sounds: Present: S1 & S2 - Extremities Extremities: no ischemia, No edema - Abdominal General gastrointestinal: Present: soft, non-tender, non-distended, normal bowel sounds - Integumentary Integumentary: Present: clear, warm - Musculoskeletal Musculoskeletal: strength equal bilaterally, generalized weakness - Psychiatric Psychiatric: appropriate mood/affect, cooperative - Neurologic Neurologic: moves all extremities Plan Activity: advance as tolerated Diet: regular Additional Instructions: If you have worsening symptoms contact MD or go to the nearest emergency room as needed. Exercise as tolerated, diet modification and weight reduction as needed. Advised to see your primary care physician in 1 week. Patient is resting room air and ambulatory room air O2 sats more than 94%. No indication for home oxygen Follow up with: PRIMARY CARE,MD [Primary Care Provider] - 3-5 Days Prescriptions: predniSONE 10 mg PO QDAY #26 tab Albuterol Mdi (or & Nicu Only) [ProAir HFA Inhaler] 2 puff IH QID PRN #1 inhalation PRN Reason: Shortness Of Breath traMADoL [Ultram 50 MG tab] 50 mg PO Q6HR PRN #8 tablet PRN Reason: Pain, Moderate (4-6) Azithromycin [Zithromax Tri-Hoang] 500 mg PO DAILY #3 tablet
[2021-01-06 17:36] VITALS: BP 127/73
[2021-01-07] MEDS ORDERED: cefTRIAXone/NS 2 GM/100 ML 2 GM/100 ML BAG IV SCH (02:00)
[2021-01-07] MEDS ORDERED: AZITHROMYCIN/NS 500 MG/250 ML 500 MG/250 ML BAG IV SCH (03:00)
--- NOTE | 2021-01-07 09:47 | Electrocardiograph Report ---
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
[2021-01-07] MEDS ORDERED: dexAMETHasone 4 MG/ML VIAL IV SCH (10:00)
== END 2021-01-06 17:55 | disposition home or self-care (01) ==
LOC: ED 23:51 → 4A 01-06 02:45 → IMCU 01-06 03:21
PROVIDERS: ADMIT Hospitalist; ATTEND Internal Medicine
DX: J45.41 Moderate persistent asthma with (acute) exacerbation (principal); Z20.822 Contact with and (suspected) exposure to COVID-19; R09.02 Hypoxemia; J18.9 Pneumonia, unspecified organism; Z79.82 Long term (current) use of aspirin; Z79.899 Other long term (current) drug therapy; Z98.890 Other specified postprocedural states
CPT/HCPCS: 36415; 71046; 80053; 82140; 82728; 82947; 83615; 84145; 84484; 85025; 85379; 86140; 87040; 93005; 94640; 96361; 96365; 96367; 96372; 96375; 99291; G0378; J0456; J0696; J1100; J1644; J2270; J2405; J3475; J7030; U0003; 94644

== ENCOUNTER 2021-07-24 15:29 | Emergency (ER) | payer SELFPAY ==
[2021-07-24] MEDS ORDERED: predniSONE 50 MG TAB PO ONE (16:10)
[2021-07-24] MEDS ORDERED: IPRATROPIUM/ALBUTEROL SULFATE 3 ML AMPUL.NEB IH ONE (16:10)
--- NOTE | 2021-07-24 16:11 | Emergency Department Report ---
- General Chief Complaint: Adult Asthma Stated Complaint: ASTHMA Time Seen by Provider: 07/24/21 16:09 Source: patient Mode of arrival: Ambulatory Limitations: No Limitations - History of Present Illness Initial Comments: 46-year-old female with past medical history of asthma presents to the ER today with complaints of a cough. Patient states that she was exposed to her daughter who had COVID-19 around the end of June, she took a COVID-19 test July 07, the first 1 was negative, but she took a second 1 the same day, a PCR and it was positive. She states that a couple days later she did not develop symptoms of a cold and a cough. She states that the cough has been persistent, severe and worse at night. She states that she is not having any wheezing or shortness of breath or chest pain or tightness just the coughing. She has tried jgzh-qfe-zwplome cough medication without relief. She has been using her albuterol MDI as well as her albuterol nebulizer machine without much relief of the cough. She denies any fever or chills. She is vaccinated against COVID-19. MD Complaint: cough -: days(s) (since july 07) - Related Data Previous Rx's Medication Instructions Recorded Last Taken Type Albuterol Mdi (or & Nicu Only) 2 puff IH QID PRN #1 inhalation 01/06/21 Unknown Rx [ProAir HFA Inhaler] Loratadine [Claritin] 10 mg PO DAILY #30 07/24/21 Unknown Rx Promethazine /Codeine 5 - 10 ml PO Q6H PRN #110 ml 07/24/21 Unknown Rx [Phenergan/Codeine 6.25-10 mg/5 ml] predniSONE [Deltasone] 50 mg PO QDAY #4 tab 07/24/21 Unknown Rx Allergies Allergy/AdvReac Type Severity Reaction Status Date / Time aspirin Allergy Shortness Verified 07/24/21 15:31 of Breath ED Review of Systems ROS: Stated complaint: ASTHMA Other details as noted in HPI Comment: All other systems reviewed and negative Constitutional: no symptoms reported Eyes: denies: eye pain, eye discharge, vision change ENT: denies: ear pain, throat pain, dental pain, hearing loss, epistaxis, congestion Respiratory: cough. denies: shortness of breath, SOB with exertion, SOB at rest, wheezing Cardiovascular: denies: chest pain, palpitations Endocrine: no symptoms reported Gastrointestinal: denies: abdominal pain, nausea, diarrhea, constipation, hematemesis, hematochezia Genitourinary: denies: urgency, dysuria, frequency, hematuria, discharge, abnormal menses, dyspareunia Musculoskeletal: denies: back pain, joint swelling, arthralgia Skin: denies: rash, lesions, change in color, change in hair/nails, pruritus Neurological: denies: headache, weakness, numbness, paresthesias, confusion, abnormal gait, vertigo Psychiatric: denies: anxiety, depression, auditory hallucinations, visual hallucinations, homicidal thoughts, suicidal thoughts Hematological/Lymphatic: denies: easy bleeding, easy bruising ED Past Medical Hx - Past Medical History Hx Congestive Heart Failure: No Hx Diabetes: No Hx Asthma: Yes Hx COPD: No - Surgical History Additional Surgical History: L armpit - Social History Smoking Status: Never Smoker - Medications Home Medications: Home Medications Medication Instructions Recorded Confirmed Last Taken Type Albuterol Mdi (or & Nicu Only) 2 puff IH QID PRN #1 inhalation 01/06/21 Unknown Rx [ProAir HFA Inhaler] Loratadine [Claritin] 10 mg PO DAILY #30 07/24/21 Unknown Rx Promethazine /Codeine 5 - 10 ml PO Q6H PRN #110 ml 07/24/21 Unknown Rx [Phenergan/Codeine 6.25-10 mg/5 ml] predniSONE [Deltasone] 50 mg PO QDAY #4 tab 07/24/21 Unknown Rx ED Physical Exam - General Limitations: No Limitations General appearance: alert, in no apparent distress - Head Head exam: Present: atraumatic, normocephalic, normal inspection - Eye Eye exam: Present: normal appearance, PERRL, EOMI Pupils: Present: normal accommodation - Neck Neck exam: Present: normal inspection, full ROM. Absent: meningismus - Respiratory Respiratory exam: Present: wheezes (Mild expiratory wheezing mainly at the upper lung ford). Absent: respiratory distress - Cardiovascular Cardiovascular Exam: Present: regular rate, normal rhythm, normal heart sounds - GI/Abdominal GI/Abdominal exam: Present: soft. Absent: distended, tenderness, guarding, rebound - Neurological Exam Neurological exam: Present: alert, oriented X3, CN II-XII intact, normal gait - Psychiatric Psychiatric exam: Present: normal affect, normal mood - Skin Skin exam: Present: intact ED Course Vital Signs 07/24/21 07/24/21 15:35 16:51 Temperature 98.2 F Pulse Rate 104 H Pulse Rate [ 93 H Anterior] Respiratory 24 Rate Respiratory 20 Rate [Anterior] Blood Pressure 153/96 O2 Sat by Pulse 95 Oximetry ED Medical Decision Making - Radiology Data Radiology results: report reviewed Patient: MELYSSA EDGE MR# : [id number] : 1975 Acct:[id number] Age/Sex: 46 / F ADM Date: 07/24/21 Loc: ED Attending Dr: Ordering Physician: JUAN M CARNEY Date of Service: 07/24/21 Procedure(s): XR chest routine 2V Accession Number(s): [id number] cc: JUAN M CARNEY Fluoro Time In Minutes: CHEST 2 VIEWS INDICATION: Cough/Covid+/Asthma. COMPARISON: 01/06/2021 FINDINGS: Support devices: None. Heart: Within normal limits. Lungs/Pleura: No acute air space or interstitial disease. No significant pleural effusion. IMPRESSION: No acute findings. Signer Name: Harman Lizarraga MD Signed: 07/24/2021 4:26 PM Workstation Name: [id number] Transcribed By: ES Dictated By: Harman Lizarraga MD Electronically Authenticated By: Harman Lizarraga MD Signed Date/Time: 07/24/211625 DD/ 24 TD/TT: Critical care attestation.: If time is entered above; I have spent that time in minutes in the direct care of this critically ill patient, excluding procedure time. ED Disposition Clinical Impression: Cough variant asthma Disposition: HOME / SELF CARE / HOMELESS Is pt being admited?: No Does the pt Need Aspirin: No Condition: Stable Instructions: Asthma (ED), Cough, Adult, Coyx-ip-Fqai, Asthma, Adult, [id number] Additional Instructions: Take the prednisone, the promethazine with codeine, and the Claritin as prescribed. Continue to use your albuterol MDI and your albuterol nebulizer treatments as needed. Follow-up with your primary care doctor either this week or next week. Return to the ER if your symptoms worsens or changes in any way. Prescriptions: Loratadine [Claritin] 10 mg PO DAILY #30 predniSONE [Deltasone] 50 mg PO QDAY #4 tab Promethazine /Codeine [Phenergan/Codeine 6.25-10 mg/5 ml] 5 - 10 ml PO Q6H PRN #110 ml PRN Reason: cough Referrals: PRIMARY CARE, [Primary Care Provider] - 3-5 Days Forms: Work/School Release Form(ED) Time of Disposition: 17:12
--- NOTE | 2021-07-24 16:30 | XRay Report ---
CHEST 2 VIEWS INDICATION: Cough/Covid+/Asthma. COMPARISON: 01/06/2021 FINDINGS: Support devices: None. Heart: Within normal limits. Lungs/Pleura: No acute air space or interstitial disease. No significant pleural effusion. IMPRESSION: No acute findings. Signer Name: Harman Lizarraga MD Signed: 07/24/2021 4:26 PM Workstation Name: [id number]
[2021-07-24 17:55] VITALS: BP 139/75
== END 2021-07-24 17:56 | disposition home or self-care (01) ==
LOC: ED 15:29
DX: J45.991 Cough variant asthma (principal)
CPT/HCPCS: 71046; 94644; 99283; J7512

== ENCOUNTER 2021-08-15 19:36 | Emergency (ER) | payer SELFPAY | END 2021-08-16 18:57 | disposition left against medical advice (07) | LOC: ED 19:36 | DX: J45.909 Unspecified asthma, uncomplicated (principal); Z53.21 Procedure and treatment not carried out due to patient leaving prior to being seen by health care provider ==

== ENCOUNTER 2021-08-16 23:09 | Emergency (ER) | payer SELFPAY ==
[2021-08-16] MEDS ORDERED: MAGNESIUM SULFATE 2 GM/50 ML BAG IV ONE (23:24)
[2021-08-16] MEDS ORDERED: ALBUTEROL 2.5 MG/3 ML NEBU IH ONE (23:24)
[2021-08-16] MEDS ORDERED: IPRATROPIUM 0.02% NEBU 2.5 ML IH ONE (23:24)
[2021-08-16] MEDS ORDERED: methylPREDNISolone Sod Succinate 125 MG/2 ML INJ IV ONE (23:24)
--- NOTE | 2021-08-16 23:28 | Emergency Department Report ---
ED Asthma HPI - General Chief Complaint: Adult Asthma Stated Complaint: ASTHMA, COUGH Time Seen by Provider: 08/16/21 23:15 Source: patient Mode of arrival: Ambulatory Limitations: No Limitations - History of Present Illness Initial Comments: Patient is 46 years old female with history of asthma. Patient presented to the ER complaining of shortness of breath and wheezing for the last 2 to 3 days getting worse. Patient was seen here few weeks ago for similar symptoms. Patient denied any fever or chills. No chest pain. MD Complaint: "asthma attack", shortness of breath, wheezing -: days(s) Asthma History: childhood onset Severity: moderate Treatments Prior to Arrival: inhaled bronchodilator - Related Data Current Asthma Therapy: inhaled bronchodilator, recent oral steroid Previous Rx's Medication Instructions Recorded Last Taken Type Albuterol Mdi (or & Nicu Only) 2 puff IH QID PRN #1 inhalation 01/06/21 Unknown Rx [ProAir HFA Inhaler] Loratadine [Claritin] 10 mg PO DAILY #30 07/24/21 Unknown Rx Promethazine /Codeine 5 - 10 ml PO Q6H PRN #110 ml 07/24/21 Unknown Rx [Phenergan/Codeine 6.25-10 mg/5 ml] predniSONE [Deltasone] 50 mg PO QDAY #4 tab 07/24/21 Unknown Rx Allergies Allergy/AdvReac Type Severity Reaction Status Date / Time aspirin Allergy Shortness Verified 07/24/21 15:31 of Breath ED Review of Systems ROS: Stated complaint: ASTHMA, COUGH Other details as noted in HPI Comment: All other systems reviewed and negative Constitutional: denies: chills, fever Respiratory: cough, shortness of breath, SOB with exertion, SOB at rest, wheezing Cardiovascular: denies: chest pain, palpitations Gastrointestinal: denies: abdominal pain, nausea, vomiting, diarrhea, constipation, hematemesis, melena, hematochezia Musculoskeletal: denies: back pain Neurological: denies: headache, weakness, numbness, paresthesias, confusion, abnormal gait ED Past Medical Hx - Past Medical History Previous Medical History?: Yes Hx Congestive Heart Failure: No Hx Diabetes: No Hx Asthma: Yes Hx COPD: No - Surgical History Additional Surgical History: L armpit - Social History Smoking Status: Never Smoker - Medications Home Medications: Home Medications Medication Instructions Recorded Confirmed Last Taken Type Albuterol Mdi (or & Nicu Only) 2 puff IH QID PRN #1 inhalation 01/06/21 Unknown Rx [ProAir HFA Inhaler] Loratadine [Claritin] 10 mg PO DAILY #30 07/24/21 Unknown Rx Promethazine /Codeine 5 - 10 ml PO Q6H PRN #110 ml 07/24/21 Unknown Rx [Phenergan/Codeine 6.25-10 mg/5 ml] predniSONE [Deltasone] 50 mg PO QDAY #4 tab 07/24/21 Unknown Rx ED Physical Exam - General Limitations: No Limitations General appearance: alert, in distress - Head Head exam: Present: atraumatic, normocephalic, normal inspection - Eye Eye exam: Present: normal appearance - ENT ENT exam: Present: normal exam, normal orophraynx, mucous membranes moist - Neck Neck exam: Present: normal inspection, full ROM. Absent: tenderness, meningismus - Respiratory Respiratory exam: Present: respiratory distress, wheezes, rhonchi, prolonged expiratory - Cardiovascular Cardiovascular Exam: Present: tachycardia - GI/Abdominal GI/Abdominal exam: Present: soft, normal bowel sounds. Absent: distended, tenderness, guarding, rebound, rigid, organomegaly, mass, bruit, pulsatile mass, hernia - Extremities Exam Extremities exam: Present: normal inspection, full ROM, normal capillary refill. Absent: tenderness, pedal edema, joint swelling, calf tenderness - Back Exam Back exam: Present: normal inspection, full ROM. Absent: CVA tenderness (R), CVA tenderness (L) - Neurological Exam Neurological exam: Present: alert, oriented X3, CN II-XII intact, normal gait, reflexes normal. Absent: motor sensory deficit - Psychiatric Psychiatric exam: Present: normal mood - Skin Skin exam: Present: warm, intact, normal color ED Course Vital Signs 08/16/21 23:16 Temperature 98.2 F Pulse Rate 112 H Respiratory 18 Rate Blood Pressure 149/84 O2 Sat by Pulse 95 Oximetry ED Medical Decision Making - Lab Data Result diagrams: 08/16/21 23:53 08/16/21 23:53 - Radiology Data Radiology results: report reviewed - Medical Decision Making Patient is 46 years old female with history of asthma. Patient present ed to the ER complaining of shortness of breath and wheezing for the last 2 to 3 days getting worse. Patient was seen here few weeks ago for similar symptoms. Patient denied any fever or chills. No chest pain. Patient received albuterol 10 mg, Atrovent 1 mg, Solu-Medrol 125 mg and magnesium sulfate 2g. Patient stated that she is feeling much better. Chest x- ray is unremarkable. Patient given prescription for prednisone and albuterol and advised to follow-up with her primary doctor in the next 2 to 3 days and to return to the ER if she develop any new symptoms. Critical care attestation.: If time is entered above; I have spent that time in minutes in the direct care of this critically ill patient, excluding procedure time. ED Disposition Clinical Impression: Acute asthma exacerbation Disposition: HOME / SELF CARE / HOMELESS Is pt being admited?: No Condition: Stable Instructions: Asthma, Adult Referrals: PRIMARY CARE, [Primary Care Provider] - 3-5 Days
--- NOTE | 2021-08-16 23:57 | XRay Report ---
CHEST 1 VIEW INDICATION / CLINICAL INFORMATION: SOB. COMPARISON: None available. FINDINGS: SUPPORT DEVICES: None. HEART / MEDIASTINUM: Borderline to mild cardiomegaly, stable. Mediastinal contour demonstrates no sig nificant abnormality. LUNGS / PLEURA: No significant pulmonary or pleural abnormality. No pneumothorax. ADDITIONAL FINDINGS: No significant additional findings. IMPRESSION: 1. No active cardiopulmonary disease. Signer Name: Alexis Cole II, MD Signed: 08/16/2021 11:52 PM Workstation Name: [id number]
[2021-08-17 00:21] LABS: Basophils % (Auto) 0.3 % (0.0-1.8); Eosinophils # (Auto) 0.8 K/mm3 (0.0-0.4); Eosinophils % (Auto) 7.1 % (0.0-4.3); Lymphocytes # (Auto) 1.3 K/mm3 (1.2-5.4); Lymphocytes % (Auto) 11.7 % (13.4-35.0); Mean Corpuscular HGB Conc 30 % (30-34); Mean Corpuscular Volume 73 fl (79-97); Monocytes # (Auto) 0.5 K/mm3 (0.0-0.8); Monocytes % (Auto) 4.6 % (0.0-7.3); Platelet Count 301 K/mm3 (140-440); Red Blood Count 4.89 M/mm3 (3.65-5.03)
[2021-08-17 00:37] LABS: Hematocrit 35.5 % (30.3-42.9); Hemoglobin 10.6 gm/dl (10.1-14.3)
[2021-08-17 00:38] LABS: BUN/Creatinine Ratio 18; Blood Urea Nitrogen 14 mg/dL (7-17); Calcium 8.5 mg/dL (8.4-10.2); Hemolysis Index 13
[2021-08-17 03:50] VITALS: BP 143/76
== END 2021-08-17 03:49 | disposition home or self-care (01) ==
LOC: ED 23:09
DX: J45.901 Unspecified asthma with (acute) exacerbation (principal)
CPT/HCPCS: 36415; 71045; 80048; 85025; 94640; 96365; 96375; 99284; J2930; J3475